=== PATIENT | male | born 1985 | race Hispanic/Latino ===

== ENCOUNTER 2020-08-24 03:22 | Emergency (ER) | payer OTHER ==
[2020-08-24] MEDS ORDERED: Proparacaine 0.5% Opth 15 ML BOT ONE (03:31)
[2020-08-24] MEDS ORDERED: Fluorescein Opthalmic Strip ONE (03:31)
== END 2020-08-24 03:51 ==
LOC: NAV ERS 03:22
DX: B30.9 Viral conjunctivitis, unspecified (principal)
CPT/HCPCS: 99283